=== PATIENT | male | born 1985 | race Caucasian/White ===

== ENCOUNTER 2016-11-08 13:24 | Emergency (ER) | payer BC, OTHER ==
[~2016-11-08] VITALS: Ht 177.8 cm; Wt 71.7 kg
[~2016-11-08 13:24] MED LIST: IBUP400T PO; MULT-658 PO; OXYC-223 PO
[2016-11-08] MEDS ORDERED: OXYC20TA59 PO (14:33)
[2016-11-08 14:46] LABS: HEMOGLOBIN 15.6 g/dL (13.7-18.0)
[2016-11-08 16:48] VITALS: BP 122/73
== END 2016-11-08 16:49 | disposition home or self-care (01) ==
LOC: ED 14:10
DX: R20.0 Anesthesia of skin (principal)
CPT/HCPCS: 36415; 85025; 85651; 86141